=== PATIENT | female | born 1970 | race Hispanic/Latino ===

== ENCOUNTER 2024-08-19 15:14 | Emergency (ER) | payer OTHER ==
[~2024-08-19] VITALS: Ht 160 cm; Wt 70.8 kg
[2024-08-19] MEDS ORDERED: SYNTHROID88 MCG PO (15:44)
[2024-08-19 15:55] VITALS: BP 126/75
[2024-08-19] MEDS ORDERED: PHENAZOPYRIDINE HCL 100 MG/TAB PO ONE (15:55)
[2024-08-19 16:00] VITALS: BP 114/75
[2024-08-19 16:15] VITALS: BP 110/75
[2024-08-19 16:30] VITALS: BP 119/75
[2024-08-19 16:35] LABS: URINE BILIRUBIN - DIPSTICK Negative (NEGATIVE); URINE BLOOD DIPSTICK Large (NEGATIVE); URINE COLOR Light yellow; URINE GLUCOSE - DIPSTICK Negative (NEGATIVE); URINE KETONE Negative (NEGATIVE); URINE LEUK ESTERASE Large (NEGATIVE); URINE NITRITE - DIPSTICK Negative (Negative); URINE PH 5.5 (4.5-8.0); URINE PROTEIN - DIPSTICK Negative (NEG-TRACE); URINE SPECIFIC GRAVITY <=1.005; URINE UROBILINOGEN - DIPSTICK 0.2 E.U./dL (0.2)
[2024-08-19 16:40] LABS: URINE WBC >100 WBC/hpf (0-5)
[2024-08-19 16:41] LABS: URINE BACTERIA FEW hpf; URINE RBC 0-2 RBC/hpf (0-5)
[2024-08-19] MEDS ORDERED: BACTRIM DS1 TAB PO (16:52)
[2024-08-19] MEDS ORDERED: PHENAZOPYRIDIN100 M1 PO (16:53)
[2024-08-19 16:57] VITALS: BP 119/75
[2024-08-22] MEDS ORDERED: MACROBID100 M1 PO (12:52)
== END 2024-08-19 17:04 | disposition home or self-care (01) | DRG 690 ==
LOC: ED 15:14
PROVIDERS: Nurse Practitioner Family
DX: N39.0 Urinary tract infection, site not specified (principal)